=== PATIENT | female | born 1980 | race Caucasian/White ===

== ENCOUNTER 2016-12-31 10:30 | Emergency (ER) | payer OTHER ==
[~2016-12-31 10:30] MED LIST: ALBUTEROL17 GM INH; ATIVAN PO; BACTRIM DS TABL1 TA1 PO; CIPRO PO; CLINDAMYCIN HC300 MG PO; FLEXERIL10 MG PO; HYDROCODON-ACE1 EAC9 PO; HYDROXYZINE HCL25 M1 PO; IBUPROFEN800 MG PO; K-DUR20 ME1 PO; KEFLEX500 M1 PO; LORTAB 5/500 TA1 TA1 PO; MULTI-VITAMIN1 TAB PO; NAPROSYN500 MG PO; NORCO 5/325 TAB1 TAB PO; ORUDIS75 M1 DOB; PHENERGAN/CODEIN5 ML PO; PREDNISONE PO; PRINCIPEN500 M2 PO; PYRIDIUM PO; SEPTRA SUSPENS100 ML PO; ZITHROMAX PO
== END 2016-12-31 12:00 | disposition left against medical advice (07) ==
LOC: CFTX 10:30
DX: Z53.21 Procedure and treatment not carried out due to patient leaving prior to being seen by health care provider (principal)